=== PATIENT | female | born 1970 | race Caucasian/White ===

== ENCOUNTER 2017-10-09 15:58 | Emergency (ER) | payer SELFPAY, BC ==
[2017-10-09 17:14] LABS: ADD MAN DIFF? NO
[2017-10-09] MEDS: ASPIRIN CHEWABLE 81 MG TABLET. PO (17:16)
[2017-10-09 17:20] LABS: BASO % 1 % (0-3); EOS % 7 % (0-3); HEMATOCRIT 41.4 % (36.0-47.0); LYMPH # 1.4 x10^3/uL (1.0-4.8); LYMPH % 20 % (24-48); MEAN CORPUSCULAR HEMOGLOBIN 34 pg (25-35); MEAN CORPUSCULAR HGB CONC 34 g/dL (31-37); MEAN CORPUSCULAR VOLUME 100 fL (79-100); MONO % 9 % (0-9); NEUT % 63 % (31-73); PLATELET COUNT 310 x10^3/uL (140-400); RED BLOOD COUNT 4.16 x10^6/uL (3.50-5.40); RED CELL DISTRIBUTION WIDTH 13.7 % (11.5-14.5); WHITE BLOOD COUNT 6.9 x10^3/uL (4.0-11.0)
[2017-10-09 17:35] LABS: ANION GAP 10 (6-14); BLOOD UREA NITROGEN 9 mg/dL (7-20); BUN/CREATININE RATIO 13 (6-20); CALCIUM 8.8 mg/dL (8.5-10.1); CARBON DIOXIDE 29 mmol/L (21-32); CHLORIDE 105 mmol/L (98-107); CREATININE 0.7 mg/dL (0.6-1.0); GFR 89.3; GLUCOSE 68 mg/dL (70-99); POTASSIUM 3.4 mmol/L (3.5-5.1); SODIUM 144 mmol/L (136-145)
[2017-10-09 17:41] LABS: ALBUMIN/GLOBULIN RATIO 1.3 (1.0-1.7); ALK PHOS 61 U/L (46-116); ALT (SGPT) 18 U/L (14-59); AST (SGOT) 15 U/L (15-37); TOTAL BILIRUBIN 0.3 mg/dL (0.2-1.0)
[2017-10-09 17:47] LABS: TROPONINI < 0.017 ng/mL (0.000-0.055)
== END 2017-10-09 19:31 | disposition home or self-care (01) ==
LOC: ER 15:58
DX: I10 Essential (primary) hypertension (principal); R07.89 Other chest pain; R05 Cough; E03.9 Hypothyroidism, unspecified; F17.200 Nicotine dependence, unspecified, uncomplicated; Z88.2 Allergy status to sulfonamides; Z88.1 Allergy status to other antibiotic agents
CPT/HCPCS: 36415; 71010; 80053; 84484; 85025; 93005; 99285-25

== ENCOUNTER 2017-12-15 16:55 | Inpatient (IN) | payer OTHER ==
[2017-12-15 17:44] LABS: URINE HCG POC HCG NEGATIVE (Negative)
[2017-12-15 17:59] LABS: ADD MAN DIFF? NO
[2017-12-15 18:01] LABS: BASO % 1 % (0-3); EOS # 0.2 x10^3/uL (0.0-0.7); EOS % 2 % (0-3); HEMATOCRIT 41.7 % (36.0-47.0); HEMOGLOBIN 14.3 g/dL (12.0-15.5); LYMPH # 1.3 x10^3/uL (1.0-4.8); LYMPH % 16 % (24-48); MEAN CORPUSCULAR HEMOGLOBIN 33 pg (25-35); MEAN CORPUSCULAR HGB CONC 34 g/dL (31-37); MEAN CORPUSCULAR VOLUME 97 fL (79-100); MONO # 0.6 x10^3/uL (0.0-1.1); MONO % 8 % (0-9); NEUT # 5.9 x10^3uL (1.8-7.7); NEUT % 74 % (31-73); PLATELET COUNT 277 x10^3/uL (140-400); RED BLOOD COUNT 4.31 x10^6/uL (3.50-5.40); RED CELL DISTRIBUTION WIDTH 12.5 % (11.5-14.5); WHITE BLOOD COUNT 8.1 x10^3/uL (4.0-11.0)
[2017-12-15 18:02] LABS: BILIRUBIN,URINE NEGATIVE (NEG); CLARITY,URINE CLEAR; COLOR,URINE YELLOW; GLUCOSE,URINE NEGATIVE (NEG); NITRITE,URINE NEGATIVE (NEG); PH,URINE 6.5; PROTEIN,URINE NEGATIVE (NEG-TRACE); UROBILINOGEN,URINE 0.2 mg/dL (0.2 mg/dL)
[2017-12-15] MEDS: IV NORMAL SALINE 1000ML BAG 1,000 ML IV (18:02)
[2017-12-15 18:13] LABS: AMPHETAMINE/METHAMPHETAMINE NEG (NEG); BARBITURATES NEG (NEG); BENZODIAZEPINES NEG (NEG); CANNABINOIDS NEG (NEG); COCAINE NEG (NEG); ETHANOL, URINE NEG (NEG); METHADONE NEG (NEG); OPIATES NEG (NEG); PHENCYCLIDINE NEG (NEG)
[2017-12-15 18:17] LABS: ANION GAP 11 (6-14); BLOOD UREA NITROGEN 8 mg/dL (7-20); CALCIUM 9.6 mg/dL (8.5-10.1); CARBON DIOXIDE 27 mmol/L (21-32); CHLORIDE 103 mmol/L (98-107); CREATININE 0.6 mg/dL (0.6-1.0); GFR 106.7; GLUCOSE 112 mg/dL (70-99); POTASSIUM 3.5 mmol/L (3.5-5.1); SODIUM 141 mmol/L (136-145)
[2017-12-15 18:22] LABS: BACTERIA,URINE 0 /HPF (0-FEW); RBC,URINE 0 /HPF (0-2); SQUAMOUS EPITHELIAL CELL,UR OCC /LPF; WBC,URINE 0 /HPF (0-4)
[2017-12-15 18:24] LABS: ALBUMIN 4.2 g/dL (3.4-5.0); ALK PHOS 65 U/L (46-116); ALT (SGPT) 25 U/L (14-59); AST (SGOT) 13 U/L (15-37); DIRECT BILIRUBIN 0.1 mg/dL (0.0-0.2); LIPASE 125 U/L (73-393); MAGNESIUM 1.7 mg/dL (1.8-2.4); PROTHROMBIN TIME PATIENT 12.3 SEC (11.7-14.0); TOTAL BILIRUBIN 0.4 mg/dL (0.2-1.0); TOTAL PROTEIN 7.7 g/dL (6.4-8.2)
[2017-12-15 18:25] LABS: TROPONINI < 0.017 ng/mL (0.000-0.055)
[2017-12-15 18:30] LABS: THYROID STIM HORMONE (TSH) 0.227 uIU/mL (0.358-3.74)
[2017-12-15 18:31] LABS: NT-PRO BNP 22 pg/mL (0-124)
[2017-12-15 18:31] LABS: CKMB INDEX 1.8 % (0-4); CKMB MASS 1.2 ng/mL (0.0-3.6); CREATINE KINASE 65 U/L (26-192)
[2017-12-15] MEDS: ACETAMINOPHEN 500 MG TABLET PO (18:55)
[2017-12-15] MEDS: IOHEXOL 300 MG/ML 100ML VIAL. IV (21:42)
[2017-12-15] MEDS ORDERED: CONTRAST GIVEN MC (21:45)
[2017-12-15] MEDS ORDERED: ONDANSETRON PF 4 MG/2 ML VIAL. IV (23:00)
[2017-12-15] MEDS ORDERED: MORPHINE SULFATE 4 MG/ML DISP.SYRIN. IV (23:00)
[2017-12-16 01:51] LABS: ADD MAN DIFF? NO
[2017-12-16 02:19] LABS: ANION GAP 10 (6-14); BLOOD UREA NITROGEN 6 mg/dL (7-20); CALCIUM 8.7 mg/dL (8.5-10.1); CARBON DIOXIDE 26 mmol/L (21-32); CHLORIDE 106 mmol/L (98-107); CREATININE 0.7 mg/dL (0.6-1.0); GFR 89.3; GLUCOSE 141 mg/dL (70-99); POTASSIUM 3.8 mmol/L (3.5-5.1); SODIUM 142 mmol/L (136-145)
[2017-12-16 03:10] LABS: TROPONINI < 0.017 ng/mL (0.000-0.055)
[2017-12-16 03:18] LABS: BASO % 1 % (0-3); EOS # 0.4 x10^3/uL (0.0-0.7); EOS % 4 % (0-3); HEMATOCRIT 40.1 % (36.0-47.0); HEMOGLOBIN 13.4 g/dL (12.0-15.5); LYMPH % 23 % (24-48); MEAN CORPUSCULAR HEMOGLOBIN 33 pg (25-35); MEAN CORPUSCULAR HGB CONC 34 g/dL (31-37); MEAN CORPUSCULAR VOLUME 98 fL (79-100); MONO # 0.8 x10^3/uL (0.0-1.1); MONO % 9 % (0-9); NEUT # 5.4 x10^3uL (1.8-7.7); NEUT % 63 % (31-73); PLATELET COUNT 273 x10^3/uL (140-400); RED BLOOD COUNT 4.09 x10^6/uL (3.50-5.40); RED CELL DISTRIBUTION WIDTH 12.8 % (11.5-14.5); WHITE BLOOD COUNT 8.5 x10^3/uL (4.0-11.0)
[2017-12-16 06:12] LABS: TROPONINI < 0.017 ng/mL (0.000-0.055)
[2017-12-16] MEDS ORDERED: LEVOTHYROXINE 100 MCG TABLET PO (09:00)
[2017-12-16] MEDS: AMOXICILLIN 250 MG CAPSULE. PO ×3 (09:30→20:16)
[2017-12-16] MEDS: REGADENOSON 0.4 MG/5 ML DISP.SYRIN. IV (13:20)
[2017-12-16 14:38] LABS: FREE T4 1.08 ng/dL (0.76-1.46)
[2017-12-16 15:03] LABS: SEDIMENTATION RATE 1 (0-25)
[2017-12-16] MEDS: LEVOTHYROXINE 88 MCG TABLET PO (17:23)
[2017-12-16] MEDS: CETIRIZINE HCL 10 MG TABLET. PO (17:23)
[2017-12-16] MEDS: LACTOBACILLUS RHAMNOSUS GG 1 CAPSULE. PO ×2 (17:24→20:15)
[2017-12-16] MEDS: diphenhydrAMINE HCL 25 MG CAPSULE PO (20:16)
[2017-12-16] MEDS: AZELASTINE NASAL SPRAY 30ML BOTTLE. NS (22:02)
[2017-12-17] MEDS: LEVOTHYROXINE 88 MCG TABLET PO (06:37)
[2017-12-17] MEDS: AZELASTINE NASAL SPRAY 30ML BOTTLE. NS (08:41)
[2017-12-17] MEDS: LACTOBACILLUS RHAMNOSUS GG 1 CAPSULE. PO (08:42)
[2017-12-17] MEDS: CETIRIZINE HCL 10 MG TABLET. PO (08:43)
[2017-12-17] MEDS: AMOXICILLIN 250 MG CAPSULE. PO (08:49)
[2017-12-18 18:11] LABS: ANA INTERP Negative (.)
== END 2017-12-17 10:25 | disposition home or self-care (01) | DRG 645 ==
LOC: ER 16:55 → 5 SOUTH 20:25
DX: E05.90 Thyrotoxicosis, unspecified without thyrotoxic crisis or storm (principal); E03.9 Hypothyroidism, unspecified; R07.89 Other chest pain; F17.200 Nicotine dependence, unspecified, uncomplicated; I10 Essential (primary) hypertension; Z82.49 Family history of ischemic heart disease and other diseases of the circulatory system; Z85.850 Personal history of malignant neoplasm of thyroid; Z92.3 Personal history of irradiation; Z88.1 Allergy status to other antibiotic agents; Z88.2 Allergy status to sulfonamides; Z88.8 Allergy status to other drugs, medicaments and biological substances; Z87.01 Personal history of pneumonia (recurrent)
CPT/HCPCS: 36415; 71045; 71275; 78452; 80048; 80076; 80307; 81001; 81025; 82553; 83690; 83735; 83880; 84439; 84443; 84481; 84484; 85025; 85610; 85651; 86038; 93005; 93017; 93306; 96360; 96374; 96375; 96376; 99285; 99285-25; A9500; J2785; J7030; Q0163; Q9967

== ENCOUNTER 2019-05-09 12:56 | Emergency (ER) | payer OTHER ==
[~2019-05-09] VITALS: Ht 157.5 cm; Wt 60.3 kg
[~2019-05-09 12:56] MED LIST: AZEL137S3 NS; AZIT500T PO; CETI10TA22 PO; LEVO100T5 PO; LEVO112T2 PO
[2019-05-09 13:14] VITALS: BP 143/93
--- NOTE | 2019-05-09 13:27 | PHYS DOC ---
Past Medical History Past Medical History: Anemia, Anxiety, Hypothyroid, Pneumonia, Other Additional Past Medical Histor: thyroid ca,POST RADIATION TX FOR THYROID CA,HYPOGLYCEMIA Past Surgical History: Other Additional Past Surgical Histo: knee Alcohol Use: Occasionally Drug Use: None Adult General Chief Complaint Chief Complaint: Congestion HPI HPI Patient is a 48 year old female presents to the ED complaining of congestion times one week. Patient is currently being treated for ear infection and her sinus infection with doxycycline. States that she has some intolerances to doxycycline including tongue numbness. Patient has taken Cefdinir in the past and is requesting a prescription for it. Denies chest pain, headache, neck pain, shortness of breath, tongue swelling, developing swallowing, cough, fever, dizziness. Review of Systems Review of Systems Constitutional: Denies fever or chills [] Eyes: Denies change in visual acuity, redness, or eye pain [] HENT: Complains of congestion and ear pain. Denies sore throat [] Respiratory: Denies cough or shortness of breath [] Cardiovascular: No additional information not addressed in HPI [] GI: Denies abdominal pain, nausea, vomiting, bloody stools or diarrhea [] : Denies dysuria or hematuria [] Musculoskeletal: Denies back pain or joint pain [] Integument: Denies rash or skin lesions [] Neurologic: Denies headache, focal weakness or sensory changes [] All other systems were reviewed and found to be within normal limits, except as documented in this note. Allergies Allergies Allergies Coded Allergies Type Severity Reaction Last Updated Verified sulfamethoxazole Allergy Intermediate "SWELLED UP" 10/09/17 Yes trimethoprim Allergy Intermediate "SWELLED UP" 10/09/17 Yes levofloxacin Adverse Reaction Intermediate joint swelling and pain 10/09/17 Yes Physical Exam Physical Exam Constitutional: Well developed, well nourished, no acute distress, non-toxic appearance. [] HENT: Normocephalic, atraumatic, bilateral external ears normal, oropharynx moist, no oral exudates, nose normal. Mild maxillary sinus tenderness.[] Eyes: PERRLA, EOMI, conjunctiva normal, no discharge. [] Neck: Normal range of motion, no tenderness, supple, no stridor. [] Cardiovascular:Heart rate regular rhythm, no murmur [] Lungs & Thorax: Bilateral breath sounds clear to auscultation [] Skin: Warm, dry, no erythema, no rash. [] Back: No tenderness, no CVA tenderness. [] Extremities: No tenderness, no cyanosis, no clubbing, ROM intact, no edema. [] Neurologic: Alert and oriented X 3, normal motor function, normal sensory function, no focal deficits noted. [] Psychologic: Affect normal, judgement normal, mood normal. [] Current Patient Data Vital Signs Vital Signs Date Time Temp Pulse Resp B/P (MAP) Pulse Ox O2 Delivery O2 Flow Rate FiO2 05/09/19 13:14 98.0 100 20 143/93 (110) 97 Room Air 98.0 EKG EKG [] Radiology/Procedures Radiology/Procedures [] Course & Med Decision Making Course & Med Decision Making Pertinent Labs and Imaging studies reviewed. (See chart for details) []Changed patient's antibiotic medication. Discussed [id number] treatments. Discussed follow-up with ENT if symptoms persist. Provided contact information/education. Discussed reasons to return to the ED. Patient unde rstands and agrees with plan. Dragon Disclaimer Dragon Disclaimer This electronic medical record was generated, in whole or in part, using a voice recognition dictation system. Departure Departure Impression: Primary Impression: Sinusitis Additional Impression: Otalgia of left ear Disposition: 01 HOME, SELF-CARE Condition: IMPROVED Referrals: BRIGIDA SANTIAGO (PCP) Patient Instructions: Otalgia, Sinusitis Scripts Cefdinir (CEFDINIR) 300 Mg Capsule 1 CAP PO BID for 10 Days, #20 CAP Prov: RIVER GOSS 05/09/19 Problem Qualifiers RIVER GOSS May 09, 2019 13:27
[2019-05-09] MEDS ORDERED: CEFD300C PO (13:32)
== END 2019-05-09 14:09 | disposition home or self-care (01) ==
LOC: ER 12:56
DX: J32.9 Chronic sinusitis, unspecified (principal); H92.02 Otalgia, left ear; E03.9 Hypothyroidism, unspecified; Z88.1 Allergy status to other antibiotic agents; Z88.2 Allergy status to sulfonamides
CPT/HCPCS: 99283

== ENCOUNTER → 2019-05-24 | Outpatient (CLI) | payer OTHER ==
[2019-05-09 13:14] VITALS: BP 143/93
[~2019-05-24] MED LIST changes: +CEFD300C PO
[2019-05-24 15:16] LABS: FREE T4 1.02 ng/dL (0.76-1.46); THYROID STIM HORMONE (TSH) 1.736 uIU/mL (0.358-3.74)
== END | disposition home or self-care (01) ==
LOC: LAB 14:14
PROVIDERS: ATTEND Internal Medicine
DX: E55.9 Vitamin D deficiency, unspecified (principal); E05.00 Thyrotoxicosis with diffuse goiter without thyrotoxic crisis or storm; E04.1 Nontoxic single thyroid nodule; E89.0 Postprocedural hypothyroidism
CPT/HCPCS: 36415; 82306; 84439; 84443; 84480

== ENCOUNTER 2019-06-16 16:14 | Emergency (ER) | payer OTHER ==
[~2019-06-16] VITALS: Ht 157.5 cm; Wt 60.8 kg
--- NOTE | 2019-06-16 17:21 | PHYS DOC ---
Past Medical History Past Medical History: Anemia, Anxiety, Hypothyroid, Pneumonia, Other Additional Past Medical Histor: thyroid ca,POST RADIATION TX FOR THYROID CA,HYPOGLYCEMIA Past Surgical History: Other Additional Past Surgical Histo: knee, right shoulder Alcohol Use: Rarely Drug Use: None Adult General Chief Complaint Chief Complaint: SHORTNESS OF BREATH HPI HPI Patient is a 48 year old male who presents with complaining of shortness of breath and something in her throat. Patient states she has had sinus pressure and nasal congestion for 25 days and treated with cefdinir and prednisone for few weeks without improvement of her condition for the last few days she feels something stuck in her throat. Patient states she was in by her primary care physician and she was concern for yeast infection and stopped the antibiotic ENT and infectious disease but she could not get appointment sooner than July and her primary care physician recommended to come to ER. She denies fever and chills, chest pain, nausea and vomiting. patient states she used to smoke cigarettes was not able to smoke cigarettes for the last couple weeks. Review of Systems Review of Systems Constitutional: Denies fever or chills [] Eyes: Denies change in visual acuity, redness, or eye pain [] HENT: Reports nasal congestion and sore throat Respiratory: Denies cough, reports shortness of breath [] Cardiovascular: No additional information not addressed in HPI [] GI: Denies abdominal pain, nausea, vomiting, bloody stools or diarrhea [] : Denies dysuria or hematuria [] Musculoskeletal: Denies back pain or joint pain [] Integument: Denies rash or skin lesions [] Neurologic: Denies headache, focal weakness or sensory changes [] Endocrine: Denies polyuria or polydipsia [] All other systems were reviewed and found to be within normal limits, except as documented in this note. Allergies Allergies Allergies Coded Allergies Type Severity Reaction Last Updated Verified sulfamethoxazole Allergy Intermediate "SWELLED UP" 10/09/17 Yes trimethoprim Allergy Intermediate "SWELLED UP" 10/09/17 Yes levofloxacin Adverse Reaction Intermediate joint swelling and pain 10/09/17 Yes Physical Exam Physical Exam Constitutional: Well developed, well nourished, mild distress, non-toxic appearance, anxious. [] HENT: Normocephalic, atraumatic, normal tympanic membrane and ear canal, normal throat without exudate or pharyngeal edema, mild nasal congestion. Eyes: PERRLA, EOMI, conjunctiva normal, no discharge. [] Neck: Normal range of motion, no tenderness, supple, no stridor. [] Cardiovascular:Heart rate regular rhythm, no murmur [] Lungs & Thorax: Bilateral breath sounds clear to auscultation [] Abdomen: Bowel sounds normal, soft, no tenderness, no masses, no pulsatile masses. [] Skin: Warm, dry, no erythema, no rash. [] Back: No tenderness, no CVA tenderness. [] Extremities: No tenderness, no cyanosis, no clubbing, ROM intact, no edema. [] Neurologic: Alert and oriented X 3, no focal deficits noted. [] Psychologic: Affect anxious, judgement normal, mood normal. [] Current Patient Data Vital Signs Vital Signs Date Time Temp Pulse Resp B/P (MAP) Pulse Ox O2 Delivery O2 Flow Rate FiO2 06/16/19 16:17 98.0 89 16 189/92 (124) 97 Room Air 98.0 Lab Values Laboratory Tests Test 06/16/19 16:33 POC Urine HCG, Qualitative Hcg negative (Negative) EKG EKG [] Radiology/Procedures Radiology/Procedures [] Course & Med Decision Making Course & Med Decision Making Pertinent Imaging studies reviewed. (See chart for details) discharge: I've spoken with the patient and/or caregivers. I've explained the patient's condition, diagnosis and treatment plan based on information available to me at this time. I've answered the patient's and/or caregivers questions and addressed any concerns. The patient and/or caregivers have a good understanding the patient's diagnosis, condition and treatment plan as can be expected at this point. Vital signs have been stabilized. The patient's condition is stable for discharge from the emergency department. The patient will pursue further outpatient evaluation with her primary care provider or other designated consulting physician as outlined in the discharge instructions. Patient and/or caregivers are agreeable to this plan of care and follow-up instructions have been explained in detail. The patient and/or caregivers have received these instructions in written format and expressed understanding of these discharge instructions. The patient and her caregivers are aware that if any significant change in condition or worsening of symptoms should prompt him to immediately return to this of the closest emergency department. If an emergent department is not readily available I would encourage him to call 911. Mariana Disclaimer Dragon Disclaimer This electronic medical record was generated, in whole or in part, using a voice recognition dictation system. Departure Departure Impression: Primary Impression: Maxillary sinusitis Disposition: HOME, SELF-CARE (at 1803) Condition: STABLE Referrals: BRIGIDA SANTIAGO (PCP) Patient Instructions: Sinusitis Additional Instructions: Drink plenty of liquids Follow-up with your primary care physician in 3-5 days Return to ER if not getting better Scripts Amoxicillin (AMOXICILLIN) 500 Mg Capsule 1 CAP PO Q8HRS for infection, #30 CAP Prov: GORDON RÍOS MD 06/16/19 Problem Qualifiers Primary Impression: Maxillary sinusitis Chronicity: unspecified Qualified Codes: J32.0 - Chronic maxillary sinusitis GORDON RÍOS MD Jun 16, 2019 17:21
--- NOTE | 2019-06-16 17:39 | RAD ---
Exam: CT soft tissue neck without contrast INDICATION: Sinus pain, thrush in mouth, and possible infection and throughout TECHNIQUE: Sequential axial images through the neck obtained without IV contrast. Sagittal and coronal reformatted images were reconstructed from the axial data and reviewed. Comparisons: None FINDINGS: Visualized intracranial structures are unremarkable. Mild mucosal thickening of the maxillary sinuses bilaterally greater on the left Evaluation of the vascular structures is limited secondary to noncontrast technique. Nasopharynx, oropharynx, hypopharynx and larynx are unremarkable. Thyroid and salivary glands are unremarkable. No enlarged cervical lymph nodes. Mild centrilobular emphysematous change at the upper lungs. Visualized osseous structures are unremarkable. IMPRESSION: 1. Mucosal thickening of the maxillary sinuses bilaterally greater on the left. 2. Otherwise, unremarkable evaluation of the neck. Exposure: One or more of the following in the visualized dose reduction techniques were utilized for this examination: 1. Automated exposure control 2. Adjustment of the MA and/or KV according to patient size 3. Use of iterative of reconstructive technique Electronically signed by: Dalia Collins MD (06/16/2019 5:36 PM) [id number]
--- NOTE | 2019-06-16 17:48 | RAD ---
CHEST PA LATERAL History: Shortness of breath Comparison: December 15, 2017 Findings: No consolidation or pleural effusion. Normal heart size. Impression: 1. No acute cardiopulmonary process. Electronically signed by: Ryder Ardon DO (06/16/2019 5:45 PM) [id number]
[2019-06-16] MEDS ORDERED: AMOX500C PO (18:04)
[2019-06-16 18:20] VITALS: BP 124/81
--- NOTE | 2019-06-17 06:18 | EKG ---
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
== END 2019-06-16 18:26 | disposition home or self-care (01) ==
LOC: ER 16:14
DX: J32.0 Chronic maxillary sinusitis (principal); E03.9 Hypothyroidism, unspecified; Z86.2 Personal history of diseases of the blood and blood-forming organs and certain disorders involving the immune mechanism; Z88.2 Allergy status to sulfonamides; Z88.1 Allergy status to other antibiotic agents
CPT/HCPCS: 70490; 71046; 81025; 93005; 99284-25; 99285-25

== ENCOUNTER → 2019-07-08 | Outpatient (CLI) | payer OTHER ==
[2019-06-16 18:20] VITALS: BP 124/81
[~2019-07-08] MED LIST changes: +AMOX500C PO
--- NOTE | 2019-07-08 13:22 | RAD ---
EXAM: Maxillofacial bone CT without contrast. HISTORY: Sinusitis. TECHNIQUE: Computed tomographic images of the maxillofacial bones were obtained without contrast. *One or more of the following individualized dose reduction techniques were utilized for this examination: 1. Automated exposure control. 2. Adjustment of the mA and/or kV according to patient size. 3. Use of iterative reconstruction technique. COMPARISON: 06/18/2018. FINDINGS: There is mild left greater than right maxillary sinus and ethmoid sinus mucosal thickening. There is a small left maxillary sinus mucous retention cyst. There is obstruction of the right ostiomeatal unit. There is near obstruction of the left ostiomeatal unit. There are right and left kristie bullosa. There is no nasal septal deviation. The temporomandibular joints are intact. The orbits and visualized portions of the brain and calvarium are unremarkable. The mastoid air cells are clear. IMPRESSION: Mild left greater than right maxillary and bilateral ethmoid sinus disease with obstruction of the right ostiomeatal unit and near obstruction of the left ostiomeatal unit. The degree of left maxillary sinus mucosal thickening is slightly decreased compared to the prior study. Electronically signed by: Taty Boyce MD (07/08/2019 1:19 PM) [place] [id number]
== END | disposition home or self-care (01) ==
LOC: CT 10:18
PROVIDERS: ATTEND Otolaryngology
DX: J34.89 Other specified disorders of nose and nasal sinuses (principal); J32.9 Chronic sinusitis, unspecified
CPT/HCPCS: 70486

== ENCOUNTER → 2020-09-14 | Outpatient (CLI) | payer OTHER ==
[~2020-09-14] MED LIST changes: -CETI10TA22 PO; +CETI10TA74 PO
== END ==
LOC: SPEC 14:57
PROVIDERS: ATTEND Obstetrics & Gynecology
DX: N89.8 Other specified noninflammatory disorders of vagina (principal)
CPT/HCPCS: Q0111